=== PATIENT | female | born 1980 | race Caucasian/White ===

== ENCOUNTER 2017-07-04 10:58 | Inpatient (IN) | payer OTHER, SELFPAY ==
[2017-07-04] MEDS ORDERED: DiphenhydrAMINE 50 mg/ml Inj IV STA (11:36)
[2017-07-04] MEDS ORDERED: Sodium Chloride 0.9% 1,000 ML IV STA (11:36)
--- NOTE | 2017-07-04 12:02 | ED PDOC ---
HPI: General Adult Time Seen by Provider: 07/04/17 11:25 Chief Complaint (Nursing): Flu-like Symptoms Chief Complaint (Provider): Body Ache History Per: Patient History/Exam Limitations: no limitations Onset/Duration Of Symptoms: Days (x 3 days) Current Symptoms Are (Timing): Still Present Additional Complaint(s): 36 y/o female presents to the emergency department with a complaint of diffuse body aches, right upper arm pain and chest pain that worsens with deep breaths since Wednesday07/02/17. Associated with redness and itchiness to right armpit and states she hasn't applied any new soap, lotion or deodorant to the area. She also reports back pain, headache (not new) (not worst in her life and is mild), nausea, blurry vision(sometimes) and shortness of breath(sometimes). States she took 2 Aleve pills on Wednesday,06/30/2017, for the relief of symptoms. Denies neck pain, vomiting, diarrhea, cough, congestion, sore throat, runny nose, abdominal pain, urinary and bowel symptoms. Past Medical History Reviewed: Historical Data, Nursing Documentation, Vital Signs Vital Signs: Last Vital Signs Temp 98 F 07/04/17 11:04 Pulse 95 H 07/04/17 11:04 Resp BP 122/70 07/04/17 11:04 Pulse Ox 97 07/04/17 13:50 - Medical History PMH: No Chronic Diseases - Surgical History Surgical History: Cholecystectomy - Family History Family History: States: Unknown Family Hx - Social History Current smoker - smoking cessation education provided: No Alcohol: None Drugs: Denies - Allergies Allergies/Adverse Reactions: Allergies Allergy/AdvReac Type Severity Reaction Status Date / Time No Known Allergies Allergy Verified 07/04/17 11:18 Review of Systems ROS Statement: Except As Marked, All Systems Reviewed And Found Negative (As per HPI otherwise negative) Eyes: Positive for: Vision Change (Blurry vision (sometimes)) ENT: Negative for: Nose Discharge, Nose Congestion, Throat Pain (Sore throat) Cardiovascular: Positive for: Chest Pain (upon deep breaths) Respiratory: Positive for: Shortness of Breath (sometimes). Negative for: Cough Gastrointestinal: Positive for: Nausea. Negative for: Vomiting, Abdominal Pain , Diarrhea Genitourinary Female: Negative for: Dysuria, Hematuria Musculoskeletal: Positive for: Neck Pain, Arm Pain (Right upper arm pain), Back Pain Neurological: Positive for: Headache (not new) Physical Exam - Reviewed Nursing Documentation Reviewed: Yes Vital Signs Reviewed: Yes - Physical Exam Appears: Positive for: Non-toxic, No Acute Distress Head Exam: Positive for: ATRAUMATIC, NORMAL INSPECTION, NORMOCEPHALIC Skin: Positive for: Normal Color, Warm, Dry Cardiovascular/Chest: Positive for: Regular Rate, Rhythm. Negative for: Murmur Respiratory: Positive for: Normal Breath Sounds. Negative for: Accessory Muscle Use, Respiratory Distress Gastrointestinal/Abdominal: Positive for: Normal Exam, Soft. Negative for: Tenderness Extremity: Positive for: Normal ROM, Other (8 cm diameter erythema region noted with tenderness to the right posterior axilla and right posterior arm with mild blanching and induration. No gross fluctuance or discharge. ). Negative for: Pedal Edema Neurologic/Psych: Positive for: Alert, Oriented (x3) - Laboratory Results Result Diagrams: 07/04/17 12:20 07/04/17 12:20 Interpretation Of Abn Labs: 19.6 wbc - ECG O2 Sat by Pulse Oximetry: 97 (RA) Pulse Ox Interpretation: Normal - Radiology X-Ray: Interpreted by Me, Viewed By Me X-Ray Interpretation: No Acute Disease - Progress ED Course And Treament: 1349: Stable. Will need admit for further iv tx. Meets sepsis criteria. Dr. Ross aware and will admit. Medical Decision Making Medical Decision Making: Time: 11:36 Initial Impression: Initial Plan: --EKG --CMP --CPK --Troponin I --CBC w/ Diff --Chest X-ray --Benadryl 25 mg IV --Toradol 15 mg IVP --methylprednisolone 125mg IVP --Sodium Chloride 1L IV --Reevaluation Time: 1220 --Troponin I: <0.0120 Scribe Attestation: Documented by Eleuterio Mercer, acting as a scribe for Andrés Holguin MD. Provider Scribe Attestation: All medical record entries made by the Scribe were at my direction and personally dictated by me. I have reviewed the chart and agree that the record accurately reflects my personal performance of the history, physical exam, medical decision making, and the department course for this patient. I have also personally directed, reviewed, and agree with the discharge instructions and disposition. Disposition - Clinical Impression Clinical Impression: Cellulitis, Sepsis - Patient ED Disposition Is Patient to be Admitted: Yes Counseled Patient/Family Regarding: Studies Performed, Diagnosis - Disposition Disposition Time: 13:50 Condition: STABLE - Pt Status Changed To: Hospital Disposition Of: Inpatient - Admit Certification Admit to Inpatient:: After my assessment, the patient will require hospitalization for at least two midnights. This is because of the severity of symptoms shown, intensity of services needed, and/or the medical risk in this patient being treated as an outpatient. - POA Present On Arrival: None
[2017-07-04] MEDS ORDERED: DiphenhydrAMINE 50 mg/ml Inj ONE (12:11)
[2017-07-04 12:33] LABS: BASO # 0.1 K/uL (0.0-0.2); BASO % 0.6 % (0.0-2.0); EOS # 0.5 K/uL (0.0-0.7); EOS % 2.7 % (0.0-4.0); HEMATOCRIT 43.5 % (34.0-47.0); LYMPH # 3.7 K/uL (1.0-4.3); LYMPH % 18.9 % (20.0-40.0); MEAN CELL VOLUME 85.6 fl (81.0-99.0); MEAN CORPUSCULAR HEMOGLOBIN 28.3 pg (27.0-31.0); MONO # 1.1 K/uL (0.0-0.8); MONO % 5.6 % (0.0-10.0); NEUT # 14.2 K/uL (1.8-7.0); NEUT % 72.2 % (50.0-75.0); RED CELL DISTRIBUTION WIDTH 13.8 % (11.5-14.5); WHITE BLOOD COUNT 19.6 K/uL (4.8-10.8)
[2017-07-04 12:45] LABS: ALB/GLOB RATIO 1.2 (1.0-2.1); ALKALINE PHOSPHATASE 122 U/L (38-126); ALT/SGPT 29 U/L (9-52); AST/SGOT 26 U/L (14-36); BILIRUBIN,TOTAL 0.5 mg/dl (0.2-1.3); BLOOD UREA NITROGEN 15 mg/dl (7-17); CALCIUM 9.4 mg/dL (8.4-10.2); CARBON DIOXIDE 25 mmol/L (22-30); CHLORIDE 104 mmol/L (98-107); GFR AFRICAN-AMERICAN > 60; GLUCOSE,RANDOM 94 mg/dL (65-105); POTASSIUM 4.2 MMOL/L (3.6-5.0); SODIUM 142 mmol/l (132-148); TOTAL PROTEIN 8.1 G/DL (6.3-8.2)
[2017-07-04] MEDS ORDERED: Clindamycin 600 MG in Sodium Chloride 0.9% 100 ML IVPB STA (13:40)
[2017-07-04 14:08] LABS: VENOUS BLOOD GAS BASE EXCESS -0.6 mmol/L (0.0-2.0); VENOUS BLOOD GAS PCO2 46 mmHg (40-60); VENOUS BLOOD PH 7.35 (7.32-7.43)
--- NOTE | 2017-07-04 15:41 | RAD ---
HISTORY: pain COMPARISON: No prior. TECHNIQUE: Chest PA and lateral FINDINGS: LUNGS: No active pulmonary disease. PLEURA: No significant pleural effusion identified. No pneumothorax apparent. CARDIOVASCULAR: Normal. OSSEOUS STRUCTURES: No significant abnormalities. VISUALIZED UPPER ABDOMEN: Normal. OTHER FINDINGS: None. IMPRESSION: No active disease.
--- NOTE | 2017-07-04 16:44 | CP.PCM.HP ---
History of Present Illness - History of Present Illness History of Present Illness: CC: underarm bump HPI: 36 year old female no PMH presents with a 2 day history of what started as a small bump under her R axilla which gradually worsened with moderate pain, no drainage noted. Patient shaved a few days prior to onset, and has never had this before. On exam was noted a 7 cm erythematous tender indurated area, without drainage, +blanching. Pt also complaining of 2 day hx of dyspnea and moderate to severe sharp pain on inspiration. In ER, WBC 19.6K, 98.7, HR 88, BP 100/48, RR 18, 96% RA. Dimer pending. Will obtain CTA if warranted. HD stable, resting comfortably. ROS: per HPI all other systems reviewed and negative PMSH: appendectomy FH denies SH denies tobacco, etoh, ivdu NKDA meds as below vitals stable and reviewed as above GEN: WDWN, ALERT, COOPERATIVE HEENT: NCAT, PERRL, EOMI HEART: +S1+S2, RRR NO MRG LUNG: dyspnea on inspiration, mild distress on inspiration, CTAB, NO WRR ABD: SOFT BSX4 NT ND NO HSM NO MASS EXT: WARM, WELL PERFUSED NEURO: AA0X3, STRENGTH AND SENSATION EQUAL AND BILATERAL SKIN: WARM DRY PSYCH: NORMAL MOOD NORMAL AFFECT 07/04/17 07/04/17 07/04/17 14:03 12:20 12:20 WBC 19.6 H RBC 5.08 Hgb 14.4 Hct 43.5 MCV 85.6 MCH 28.3 MCHC 33.0 RDW 13.8 Plt Count 199 MPV 9.0 Neut % (Auto) 72.2 Lymph % (Auto) 18.9 L Pershing % (Auto) 5.6 Eos % (Auto) 2.7 Baso % (Auto) 0.6 Neut # 14.2 H Lymph # 3.7 Pershing # 1.1 H Eos # 0.5 Baso # 0.1 pO2 22 L VBG pH 7.35 VBG pCO2 46 VBG HCO3 22.7 VBG Total CO2 26.8 VBG O2 Sat (Calc) 45.9 VBG Base Excess -0.6 L VBG Potassium 4.1 Glucose 96 Lactate 0.8 FiO2 21.0 Sodium 137.0 142 Potassium 4.2 Chloride 108.0 H 104 Carbon Dioxide 25 Anion Gap 17 BUN 15 Creatinine 0.7 Est GFR ( Amer) > 60 Est GFR (Non-Af Amer) > 60 Random Glucose 94 Calcium 9.4 Total Bilirubin 0.5 AST 26 ALT 29 Alkaline Phosphatase 122 Total Creatine Kinase 100 Troponin I < 0.0120 Total Protein 8.1 Albumin 4.4 Globulin 3.7 Albumin/Globulin Ratio 1.2 Venous Blood Potassium 4.1 36 year old female no PMH presents with a 2 day history of what started as a small bump under her R axilla which gradually worsened with moderate pain, no drainage noted. Patient shaved a few days prior to onset, and has never had this before. On exam was noted a 7 cm erythematous tender indurated area, without drainage, +blanching. Pt also complaining of 2 day hx of dyspnea and moderate to severe sharp pain on inspiration. In ER, WBC 19.6K, 98.7, HR 88, BP 100/48, RR 18, 96% RA. Dimer pending. Will obtain CTA if warranted. HD stable, resting comfortably. Folliculitis vs. Hidradenitis Supprativa afebrile HD stable WBC 19k Continue Clindamycin IVPB monitor Surgery Consulted: Dr. More Chest pain on Inspiration with Dyspnea Dimer Pending will obtain CTA if warranted. Present on Admission - Present on Admission Any Indicators Present on Admission: No Past Patient History - Past Social History Alcohol: None Drugs: Denies - PSYCHIATRIC Hx Substance Use: No - SURGICAL HISTORY Hx Cholecystectomy: Yes - ANESTHESIA Hx Anesthesia: Yes Hx Anesthesia Reactions: No Meds Allergies/Adverse Reactions: Allergies Allergy/AdvReac Type Severity Reaction Status Date / Time No Known Allergies Allergy Verified 07/04/17 11:18 Results - Vital Signs Recent Vital Signs: Last Vital Signs Temp 98.7 F 07/04/17 14:30 Pulse 89 07/04/17 15:36 Resp 18 07/04/17 15:36 BP 101/63 07/04/17 15:36 Pulse Ox 96 07/04/17 15:36 - Labs Result Diagrams: 07/04/17 12:20 07/04/17 12:20 Labs: Laboratory Results - last 24 hr 07/04/17 07/04/17 07/04/17 12:20 12:20 14:03 WBC 19.6 H RBC 5.08 Hgb 14.4 Hct 43.5 MCV 85.6 MCH 28.3 MCHC 33.0 RDW 13.8 Plt Count 199 MPV 9.0 Neut % (Auto) 72.2 Lymph % (Auto) 18.9 L Pershing % (Auto) 5.6 Eos % (Auto) 2.7 Baso % (Auto) 0.6 Neut # 14.2 H Lymph # 3.7 Pershing # 1.1 H Eos # 0.5 Baso # 0.1 pO2 22 L VBG pH 7.35 VBG pCO2 46 VBG HCO3 22.7 VBG Total CO2 26.8 VBG O2 Sat (Calc) 45.9 VBG Base Excess -0.6 L VBG Potassium 4.1 Glucose 96 Lactate 0.8 FiO2 21.0 Sodium 142 137.0 Potassium 4.2 Chloride 104 108.0 H Carbon Dioxide 25 Anion Gap 17 BUN 15 Creatinine 0.7 Est GFR ( Amer) > 60 Est GFR (Non-Af Amer) > 60 Random Glucose 94 Calcium 9.4 Total Bilirubin 0.5 AST 26 ALT 29 Alkaline Phosphatase 122 Total Creatine Kinase 100 Troponin I < 0.0120 Total Protein 8.1 Albumin 4.4 Globulin 3.7 Albumin/Globulin Ratio 1.2 Venous Blood Potassium 4.1
[2017-07-04] MEDS ORDERED: Iodixanol 320 MG/ML 100 ML BOTTLE IV ONE (18:20)
[2017-07-04] MEDS ORDERED: Sodium Chloride 0.9% 50 ML IV ONE (18:20)
--- NOTE | 2017-07-04 18:20 | CP.PCM.CON ---
History of Present Illness - History of Present Illness History of Present Illness: General Surgery Dr. More 36 y/o F w/ no PMHx presents to the ED c/o R axillary lesion pain. Pt states lesion began Wednesday as small pimple and has progressively increased in size. Pt reports worsening pain and warmth from the site. Pt states lesion is itchy. Pt has not noticed any drainage from the site. Pt denies having had this in the past. Per EMR, pt recently shaved a few days prior to when the lesion was first noticed. Pt admits to numbness/tingling in R arm and myalgias. Of note, pt also c/o of pleuritic chest pain, SOB, and MITCHELL. PMHx: denies Meds: reviewed in chart NKDA PSHx: appy SHx: denies tobacco, EtOH, drug use FHx: denies Review of Systems - Review of Systems All systems: reviewed and no additional remarkable complaints except (see HPI) Past Patient History - Past Social History Alcohol: None Drugs: Denies - PSYCHIATRIC Hx Substance Use: No - SURGICAL HISTORY Hx Cholecystectomy: Yes - ANESTHESIA Hx Anesthesia: Yes Hx Anesthesia Reactions: No Meds Allergies/Adverse Reactions: Allergies Allergy/AdvReac Type Severity Reaction Status Date / Time No Known Allergies Allergy Verified 07/04/17 11:18 - Medications Medications: Current Medications Acetaminophen (Tylenol 325mg Tab) 650 mg PO Q4 PRN PRN Reason: Pain, Moderate (4-7)% headache Clindamycin Phosphate 600 mg/ (Sodium Chloride) 104 mls @ 104 mls/hr IVPB Q8 FLORENCIO PRN Reason: Protocol Physical Exam - Constitutional Appears: Non-toxic, No Acute Distress - Head Exam Head Exam: NORMAL INSPECTION - Eye Exam Eye Exam: Normal appearance - ENT Exam ENT Exam: Mucous Membranes Moist - Respiratory Exam Respiratory Exam: Chest Wall Tenderness, NORMAL BREATHING PATTERN. absent: Accessory Muscle Use, Respiratory Distress - Cardiovascular Exam Cardiovascular Exam: Tachycardia, REGULAR RHYTHM - GI/Abdominal Exam GI & Abdominal Exam: Soft. absent: Distended, Tenderness - Extremities Exam Additional comments: 4cm x4cm area of induration in R axilla. erythematous area slightly larger at ~5 -6cm. no fluctance. no drainage noted. surrounding skin excoriated - Neurological Exam Neurological exam: Alert, Oriented x3 - Psychiatric Exam Psychiatric exam: Normal Affect, Normal Mood - Skin Skin Exam: Dry, Intact, Warm Results - Vital Signs Recent Vital Signs: Last Vital Signs Temp 98.7 F 07/04/17 14:30 Pulse 89 07/04/17 15:36 Resp 18 07/04/17 15:36 BP 101/63 07/04/17 15:36 Pulse Ox 96 07/04/17 15:36 - Labs Result Diagrams: 07/04/17 12:20 07/04/17 12:20 Labs: Laboratory Results - last 24 hr 07/04/17 07/04/17 07/04/17 12:20 12:20 14:03 WBC 19.6 H RBC 5.08 Hgb 14.4 Hct 43.5 MCV 85.6 MCH 28.3 MCHC 33.0 RDW 13.8 Plt Count 199 MPV 9.0 Neut % (Auto) 72.2 Lymph % (Auto) 18.9 L Blount % (Auto) 5.6 Eos % (Auto) 2.7 Baso % (Auto) 0.6 Neut # 14.2 H Lymph # 3.7 Blount # 1.1 H Eos # 0.5 Baso # 0.1 D-Dimer, Quantitative pO2 22 L VBG pH 7.35 VBG pCO2 46 VBG HCO3 22.7 VBG Total CO2 26.8 VBG O2 Sat (Calc) 45.9 VBG Base Excess -0.6 L VBG Potassium 4.1 Glucose 96 Lactate 0.8 FiO2 21.0 Sodium 142 137.0 Potassium 4.2 Chloride 104 108.0 H Carbon Dioxide 25 Anion Gap 17 BUN 15 Creatinine 0.7 Est GFR ( Amer) > 60 Est GFR (Non-Af Amer) > 60 Random Glucose 94 Calcium 9.4 Total Bilirubin 0.5 AST 26 ALT 29 Alkaline Phosphatase 122 Total Creatine Kinase 100 Troponin I < 0.0120 Total Protein 8.1 Albumin 4.4 Globulin 3.7 Albumin/Globulin Ratio 1.2 Venous Blood Potassium 4.1 07/04/17 17:05 WBC RBC Hgb Hct MCV MCH MCHC RDW Plt Count MPV Neut % (Auto) Lymph % (Auto) Blount % (Auto) Eos % (Auto) Baso % (Auto) Neut # Lymph # Blount # Eos # Baso # D-Dimer, Quantitative 278 H pO2 VBG pH VBG pCO2 VBG HCO3 VBG Total CO2 VBG O2 Sat (Calc) VBG Base Excess VBG Potassium Glucose Lactate FiO2 Sodium Potassium Chloride Carbon Dioxide Anion Gap BUN Creatinine Est GFR ( Amer) Est GFR (Non-Af Amer) Random Glucose Calcium Total Bilirubin AST ALT Alkaline Phosphatase Total Creatine Kinase Troponin I Total Protein Albumin Globulin Albumin/Globulin Ratio Venous Blood Potassium - Imaging and Cardiology CT scan - chest Status: Image reviewed by me, Report reviewed by me Assessment & Plan - Assessment and Plan (Free Text) Assessment: 36 y/o F w/ hidradenitis suppurativa aslo c/o pleuritic CP - warm compressed TID - US and doppler of R arm - IV Abx - pain management - CTA negative for PE - medical management as per PMD - GI/DVT PPx Pt discussed w/ Dr. Derik Leonardo DO PGY2
--- NOTE | 2017-07-04 19:44 | CT ---
EXAM: CT Angiography Chest With Intravenous Contrast EXAM DATE/TIME: 07/04/2017 6:15 PM CLINICAL HISTORY: 36 years old, female; Signs and symptoms; Other: Pe; Additional info: R/O pe TECHNIQUE: Axial computed tomographic angiography images of the chest with intravenous contrast using pulmonary embolism protocol. All CT scans at this facility use one or more dose reduction techniques, viz.: automated exposure control; ma/kV adjustment per patient size (including targeted exams where dose is matched to indication; i.e. head); or iterative reconstruction technique. MIP reconstructed images were created and reviewed. Coronal and sagittal reformatted images were created and reviewed. CONTRAST: 95 mL of VISIPAQUE 320 administered intravenously. COMPARISON: There are no prior studies for comparison. FINDINGS: Heart, aorta and Pulmonary arteries: The heart is mildly enlarged. There is no pericardial effusion.There is no aneurysm or dissection. There are no central pulmonary emboli. Allowing for bolus timing and motion, there are no large peripheral emboli. There are no effusions Lungs and pleural spaces: Trachea and main bronchi are patent.There is no pneumothorax. There is no lobar or segmental consolidation. There are asymmetric groundglass opacities bilaterally. There are no effusions. Mediastinum: There are no pathologically enlarged mediastinal or hilar nodes. Esophagus is unremarkable. Thyroid: Thyroid is only partially imaged. Bones/joints: There are no acute osseous abnormalities. Soft tissues: unremarkable Lymph nodes: See above. Upper abdomen: There are no acute abnormalities in the visualized portion of the abdomen. Gallbladder is absent IMPRESSION: Slightly limited by bolus timing and patient motion, no aneurysm, dissection or pulmonary embolus, minimal asymmetric airspace disease atelectasis versus pneumonitis, no focal consolidation
[2017-07-04] MEDS ORDERED: Heparin 25,000units in D5W 25,000 UNITS/250 ML BAG IV SCH ×2 (20:45→23:45)
[2017-07-04 21:55] LABS: PARTIAL THROMBOPLASTIN TIME 34.4 Seconds (25.6-37.1)
[2017-07-05] MEDS: Clindamycin 600 MG in Sodium Chloride 0.9% 100 ML IVPB SCH ×2 (00:34→09:33)
[2017-07-05 01:18] VITALS: BMI 33.3
--- NOTE | 2017-07-05 07:36 | CP.PCM.PN ---
Subjective - Date & Time of Evaluation Date of Evaluation: 07/05/17 Time of Evaluation: 06:40 - Subjective Subjective: Patient seen and examined this morning. Reports right axilla pain has improved since admission. Patient still complaining of intermittent chest pain and shortness of breath. She also reports calf tenderness. No drainage noted from right axilla, erythema is improving. Objective - Vital Signs/Intake and Output Vital Signs (last 24 hours): Temp Pulse Resp BP Pulse Ox 97.7 F 99 H 20 102/61 96 07/05/17 00:19 07/05/17 02:41 07/05/17 00:19 07/05/17 00:19 07/05/17 00:19 - Medications Medications: Current Medications Acetaminophen (Tylenol 325mg Tab) 650 mg PO Q4 PRN PRN Reason: Pain, Moderate (4-7)% headache Last Admin: 07/04/17 19:03 Dose: 650 mg Clindamycin Phosphate 600 mg/ (Sodium Chloride) 104 mls @ 104 mls/hr IVPB Q8 FLORENCIO PRN Reason: Protocol Last Admin: 07/05/17 00:34 Dose: 104 mls/hr Heparin Sodium/Dextrose (Heparin 25,000 Units/250ml In D5w) 25,000 units in 250 mls @ 15 mls/hr IV .[id number] FLORENCIO; Per Protocol PRN Reason: Protocol Last Admin: 07/05/17 00:52 Dose: 15 mls/hr Influenza Virus Vaccine (Afluria (Pf)(18yr & Older)) 0.5 ml IM .ONCE ONE Stop: 07/05/17 09:01 - Labs Labs: 07/04/17 12:20 07/04/17 12:20 PT 14.4 Seconds (9.8-13.1) H 07/04/17 21:30 INR 1.3 (0.9-1.2) H 07/04/17 21:30 APTT 34.4 Seconds (25.6-37.1) 07/04/17 21:30 - Constitutional Appears: No Acute Distress - Head Exam Head Exam: NORMOCEPHALIC - Eye Exam Eye Exam: Normal appearance - ENT Exam ENT Exam: Mucous Membranes Moist - Respiratory Exam Respiratory Exam: NORMAL BREATHING PATTERN. absent: Chest Wall Tenderness - Cardiovascular Exam Cardiovascular Exam: +S1, +S2 - GI/Abdominal Exam GI & Abdominal Exam: Soft - Extremities Exam Extremities Exam: Calf Tenderness, Tenderness Additional comments: Right upper extremity collection, no erythema noted, no drainage appreciated B/l calf tenderness - Neurological Exam Neurological Exam: Alert, Awake, Oriented x3 - Psychiatric Exam Psychiatric exam: Normal Mood - Skin Skin Exam: Dry, Intact Assessment and Plan - Assessment and Plan (Free Text) Assessment: 36F w/ hidradenitis and intermittent chest pain/SOB -F/u axilla U/S -f/u b/l venous duplex -C/w abx -Heparin drip -C/w analgesics -Warm compresses -D/w Dr. Derik Wilson PGY2
[2017-07-05 07:51] LABS: BASO % 0.1 % (0.0-2.0); HEMATOCRIT 38.4 % (34.0-47.0); LYMPH # 2.5 K/uL (1.0-4.3); LYMPH % 8.7 % (20.0-40.0); MEAN CELL VOLUME 85.2 fl (81.0-99.0); MEAN CORPUSCULAR HEMOGLOBIN 28.2 pg (27.0-31.0); MEAN CORPUSCULAR HGB CONC 33.1 g/dL (33.0-37.0); MEAN PLATELET VOLUME 9.3 fl (7.2-11.7); MONO # 1.5 K/uL (0.0-0.8); MONO % 5.3 % (0.0-10.0); NEUT # 24.8 K/uL (1.8-7.0); NEUT % 85.9 % (50.0-75.0); PLATELET COUNT 184 K/uL (130-400); RED CELL DISTRIBUTION WIDTH 13.5 % (11.5-14.5); WHITE BLOOD COUNT 28.8 K/uL (4.8-10.8)
[2017-07-05 07:57] LABS: BLOOD UREA NITROGEN 20 mg/dl (7-17); CARBON DIOXIDE 21 mmol/L (22-30); CHLORIDE 110 mmol/L (98-107); GFR AFRICAN-AMERICAN > 60; GLUCOSE,RANDOM 146 mg/dL (65-105); POTASSIUM 4.3 MMOL/L (3.6-5.0); SODIUM 141 mmol/l (132-148)
[2017-07-05 08:00] VITALS: RESP 18
--- NOTE | 2017-07-05 08:41 | CARD ---
APPROVED REPORT EKG Measurement Heart [id number] [id number] <Conclusion> Normal sinus rhythm Normal ECG
[2017-07-05] MEDS ORDERED: Enoxaparin 40 mg Syringe SC SCH (09:00)
[2017-07-05 09:23] LABS: EOSINOPHIL 1 % (0-7); NEUTROPHIL 88 % (42-75); TOTAL CELLS COUNTED 100
[2017-07-05 09:25] LABS: LARGE PLATELETS PRESENT
--- NOTE | 2017-07-05 12:01 | US ---
PROCEDURE: Bilateral lower extremity venous duplex Doppler. HISTORY: r/o DVT, right calf pain COMPARISON: None available. TECHNIQUE: Bilateral common femoral, superficial femoral, popliteal and posterior tibial veins were evaluated. Flow was assessed with color Doppler, compressibility, assessment of phasic flow and augmentation response. FINDINGS: COMMON FEMORAL VEIN: Right CFV: Unremarkable. Left CFV: Unremarkable. SUPERFICIAL FEMORAL VEIN: Right SFV: Unremarkable. Left SFV: Unremarkable. POPLITEAL VEIN: Right Popliteal: Unremarkable. Left Popliteal: Unremarkable. POSTERIOR TIBIAL VEIN: Right PTV: Unremarkable. Left PTV: Unremarkable. OTHER FINDINGS: None. IMPRESSION: No evidence of deep venous thrombosis.
--- NOTE | 2017-07-05 12:03 | US ---
PROCEDURE: Soft tissue ultrasound, limited HISTORY: R axillary lesion, hydradenitis vs lymphadenopathy COMPARISON: None TECHNIQUE: Standard protocol for this study/examination. FINDINGS: Diffuse edema in the right axilla. Subcutaneous edema common no drainable collection. Morphologically, unremarkable lymph node measuring less than 1 cm. IMPRESSION: Diffuse cutaneous and subcutaneous edema right axilla correspond to findings on physical examination. No drainable collection or other pathologic process.
--- NOTE | 2017-07-05 12:07 | US ---
PROCEDURE: HISTORY: axillary pain, pleuritic chest pain COMPARISON: None available. TECHNIQUE: Grayscale and duplex Doppler evaluation of the right upper extremity was performed. Report prepared by electroneurodiagnostic technologist. FINDINGS: RIGHT UPPER EXTREMITY: * Right common carotid: Peak Systolic Velocity - 91.9: : * Right SCA: Peak Systolic Velocity - 128.4: : Triphasic.: * Axillary: Peak Systolic Velocity - 76.3: Doppler Waveform: Biphasic: * Brachial o Proximal Segment: Peak Systolic Velocity - 103.4: Doppler Waveform: Triphasic.: o Distal Segment: Peak Systolic Velocity - 110.3: Doppler Waveform: Triphasic.: * Radial o Proximal Segment: Peak Systolic Velocity - 97.9: Doppler Waveform: Biphasic: * Ulnar: Peak Systolic Velocity - 66.9: Doppler Waveform: Biphasic: OTHER FINDINGS: None. IMPRESSION: There is no evidence of hemodynamically significant arterial insufficiency in right upper extremity.
[2017-07-05] MEDS ORDERED: Naproxen 500 MG TAB PO STA (15:13)
--- NOTE | 2017-07-05 15:15 | CP.PCM.PN ---
Subjective - Date & Time of Evaluation Date of Evaluation: 07/05/17 Time of Evaluation: 14:00 - Subjective Subjective: No fever at present + leukocytosis complains of tenderness /pain axillary area CP improved sl headache relieved by Naproxen - no nuchal rigidity no SOB no abd pain no dysuria Objective - Vital Signs/Intake and Output Vital Signs (last 24 hours): Temp Pulse Resp BP Pulse Ox 97.5 F L 69 18 95/59 L 98 07/05/17 07:59 07/05/17 07:59 07/05/17 07:59 07/05/17 07:59 07/05/17 07:59 - Medications Medications: Current Medications Acetaminophen (Tylenol 325mg Tab) 650 mg PO Q4 PRN PRN Reason: Pain, Moderate (4-7)% headache Last Admin: 07/05/17 10:04 Dose: 650 mg Vancomycin HCl 1 gm/ Sodium (Chloride) 250 mls @ 166.667 mls/hr IVPB Q12 FLORENCIO PRN Reason: Protocol Naproxen (Naproxen) 500 mg PO STAT STA Stop: 07/05/17 15:14 - Labs Labs: 07/05/17 07:30 07/05/17 07:30 PT 14.4 Seconds (9.8-13.1) H 07/04/17 21:30 INR 1.3 (0.9-1.2) H 07/04/17 21:30 APTT 119.7 Seconds (25.6-37.1) H* D 07/05/17 07:30 - Constitutional Appears: No Acute Distress - Head Exam Head Exam: NORMAL INSPECTION, NORMOCEPHALIC - Eye Exam Eye Exam: EOMI, Normal appearance, PERRL Pupil Exam: NORMAL ACCOMODATION - ENT Exam ENT Exam: Mucous Membranes Moist, Normal External Ear Exam - Neck Exam Neck Exam: Full ROM. absent: Meningismus - Respiratory Exam Respiratory Exam: NORMAL BREATHING PATTERN. absent: Respiratory Distress - Cardiovascular Exam Cardiovascular Exam: REGULAR RHYTHM, +S1, +S2 - Extremities Exam Extremities Exam: Full ROM, Normal Capillary Refill. absent: Calf Tenderness, Pedal Edema Additional comments: Right axillary area erythematous, tender, noted small superficial furuncle, palpable LN - Back Exam Back Exam: Full ROM. absent: CVA tenderness (L), CVA tenderness (R), paraspinal tenderness, vertebral tenderness - Neurological Exam Neurological Exam: Alert, Awake, CN II-XII Intact, Oriented x3 Neuro motor strength exam: Left Upper Extremity: 5, Right Upper Extremity: 5, Left Lower Extremity: 5, Right Lower Extremity: 5 - Psychiatric Exam Psychiatric exam: Normal Affect, Normal Mood - Skin Skin Exam: Dry, Normal Color, Warm Assessment and Plan (1) Cellulitis of axillary fold Status: Acute (2) Chest pain Status: Acute - Assessment and Plan (Free Text) Assessment: 36 y/o lady with hx of Migraine, came in bec of 3 days hx of fever and right axillary pain , erythema and tenderness. (1) Cellulitis of axillary fold, right Status: Acute erythematous , tender patch on the right axillary area, noted small area of pimple start IV Vanco, d/c Clinda, add IV Cefepime Blood c/s Surgery consulted US of axilla: no abscess Doppler US of UE Negative for DVT UE Arterial Doppler : good flow leukocytosis 19k- worse due to steroids given in ED (2) Chest pain Status: Acute DDimer elevated CTA of Chest : no PE , no dissection, noted minimal airspace dis (atelectasis vs pneumonitis) Pt on IV Vanco and Cefepime Doppler US of UE and LE : negative Incentive spirometer initially started on Heparin drip - d/c after VTE ruled out DVT proph Lovenox start in am
--- NOTE | 2017-07-05 16:53 | US ---
Right upper extremity ultrasound Indication: Rule out DVT Technique: Duplex ultrasound evaluation of the right upper extremity Comparison: None available Findings: There is normal flow and compressibility of the right brachial, basilic, axillary, and cephalic veins. Radial and ulnar veins appear unremarkable. Blood flow is demonstrated in the right subclavian and internal jugular vein. Impression: No evidence of deep venous thrombosis in the right upper extremity.
[2017-07-05] MEDS: Influenza Vaccine 18yr & older 0.5 ML/45 MCG SYR IM ONE (18:55)
[2017-07-05] MEDS ORDERED: Cefepime IV 1 gm in Dextrose 1 GM/50 ML BAG IVPB SCH (19:30)
[2017-07-06] MEDS: Cefepime 1 GM in Sodium Chloride 0.9% 100 ML IVPB SCH ×2 (05:00→12:30)
[2017-07-06] MEDS ORDERED: Cefepime 1 GM in Sodium Chloride 0.9% 100 ML IVPB ONE (05:00)
[2017-07-06 06:43] LABS: BASO # 0.2 K/uL (0.0-0.2); BASO % 0.8 % (0.0-2.0); EOS # 0.6 K/uL (0.0-0.7); EOS % 3.1 % (0.0-4.0); HEMATOCRIT 37.1 % (34.0-47.0); LYMPH # 5.3 K/uL (1.0-4.3); LYMPH % 28.5 % (20.0-40.0); MEAN CELL VOLUME 84.6 fl (81.0-99.0); MEAN CORPUSCULAR HEMOGLOBIN 28.3 pg (27.0-31.0); MEAN CORPUSCULAR HGB CONC 33.5 g/dL (33.0-37.0); MONO # 0.8 K/uL (0.0-0.8); MONO % 4.5 % (0.0-10.0); NEUT # 11.8 K/uL (1.8-7.0); NEUT % 63.1 % (50.0-75.0); RED CELL DISTRIBUTION WIDTH 13.9 % (11.5-14.5); WHITE BLOOD COUNT 18.7 K/uL (4.8-10.8)
[2017-07-06 06:49] LABS: BLOOD UREA NITROGEN 18 mg/dl (7-17); CARBON DIOXIDE 21 mmol/L (22-30); CHLORIDE 112 mmol/L (98-107); GFR AFRICAN-AMERICAN > 60; GLUCOSE,RANDOM 96 mg/dL (65-105); POTASSIUM 4.3 MMOL/L (3.6-5.0); SODIUM 142 mmol/l (132-148)
[2017-07-06 07:27] VITALS: BP 97/59; PULSE 71; TEMP 97.9; O2SAT 99
--- NOTE | 2017-07-06 07:39 | CP.PCM.PN ---
Subjective - Date & Time of Evaluation Date of Evaluation: 07/06/17 Time of Evaluation: 07:10 - Subjective Subjective: Patient seen and examined this morning. Reports some pruritus around axilla region. States her pain has markedly decreases since admission. No erythema/ discharge noted from right axilla. Objective - Vital Signs/Intake and Output Vital Signs (last 24 hours): Temp Pulse Resp BP Pulse Ox 97.9 F 71 18 97/59 L 99 07/06/17 07:26 07/06/17 07:26 07/06/17 07:26 07/06/17 07:26 07/06/17 07:26 - Medications Medications: Current Medications Acetaminophen (Tylenol 325mg Tab) 650 mg PO Q4 PRN PRN Reason: Pain, Moderate (4-7)% headache Last Admin: 07/05/17 20:47 Dose: 650 mg Enoxaparin Sodium (Lovenox) 40 mg SC DAILY FLORENCIO PRN Reason: Protocol Vancomycin HCl 1 gm/ Sodium (Chloride) 250 mls @ 166.667 mls/hr IVPB Q12 FLORENCIO PRN Reason: Protocol Last Admin: 07/05/17 21:52 Dose: 166.667 mls/hr Cefepime HCl 1 gm/ Sodium (Chloride) 100 mls @ 100 mls/hr IVPB Q8@0500,1300, 2100 FLORENCIO PRN Reason: Protocol - Labs Labs: 07/06/17 06:00 07/06/17 06:00 PT 14.4 Seconds (9.8-13.1) H 07/04/17 21:30 INR 1.3 (0.9-1.2) H 07/04/17 21:30 APTT 34.4 Seconds (25.6-37.1) 07/04/17 21:30 - Constitutional Appears: No Acute Distress - Head Exam Head Exam: NORMOCEPHALIC - Eye Exam Eye Exam: Normal appearance - ENT Exam ENT Exam: Mucous Membranes Moist - Respiratory Exam Respiratory Exam: NORMAL BREATHING PATTERN - Cardiovascular Exam Cardiovascular Exam: +S1, +S2 - GI/Abdominal Exam GI & Abdominal Exam: Soft - Neurological Exam Neurological Exam: Alert, Awake, Oriented x3 - Psychiatric Exam Psychiatric exam: Normal Mood - Skin Skin Exam: Dry, Intact Assessment and Plan - Assessment and Plan (Free Text) Assessment: 36F w/ hidradenitis suppuritiva -axilla U/S: No drainable collection -b/l venous duplex; No evidence of DVTs -C/w abx -C/w analgesics -Warm compresses -D/w Dr. Derik Wilson PGY2
[2017-07-06] MEDS ORDERED: Enoxaparin 40 mg Syringe SC SCH (09:00)
[2017-07-06] MEDS ORDERED: Povidone Iodine Topical 10% Sol ONE (11:16)
--- NOTE | 2017-07-06 11:23 | CP.PCM.DIS ---
Provider - Provider Date of Admission: 07/04/17 13:50 Attending physician: Maryjo Ross DO Consults: Surgery : Dr More Time Spent in preparation of Discharge (in minutes): 35 Diagnosis - Discharge Diagnosis (1) Cellulitis of axillary fold Status: Acute (2) Chest pain Status: Acute Hospital Course - Lab Results Lab Results: Micro Results 07/04/17 13:45 Blood-Venous Blood Culture - Preliminary NO GROWTH AFTER 24 HOURS 07/04/17 14:00 Blood-Venous Blood Culture - Preliminary NO GROWTH AFTER 24 HOURS Most Recent Lab Values WBC 18.7 K/uL (4.8-10.8) H 07/06/17 06:00 RBC 4.39 Mil/uL (3.80-5.20) 07/06/17 06:00 Hgb 12.4 g/dL (12.0-16.0) 07/06/17 06:00 Hct 37.1 % (34.0-47.0) 07/06/17 06:00 MCV 84.6 fl (81.0-99.0) 07/06/17 06:00 MCH 28.3 pg (27.0-31.0) 07/06/17 06:00 MCHC 33.5 g/dL (33.0-37.0) 07/06/17 06:00 RDW 13.9 % (11.5-14.5) 07/06/17 06:00 Plt Count 193 K/uL (130-400) 07/06/17 06:00 MPV 9.0 fl (7.2-11.7) 07/06/17 06:00 Neut % (Auto) 63.1 % (50.0-75.0) 07/06/17 06:00 Lymph % (Auto) 28.5 % (20.0-40.0) 07/06/17 06:00 [place] % (Auto) 4.5 % (0.0-10.0) 07/06/17 06:00 Eos % (Auto) 3.1 % (0.0-4.0) 07/06/17 06:00 Baso % (Auto) 0.8 % (0.0-2.0) 07/06/17 06:00 Neut # 11.8 K/uL (1.8-7.0) H 07/06/17 06:00 Lymph # 5.3 K/uL (1.0-4.3) H 07/06/17 06:00 [place] # 0.8 K/uL (0.0-0.8) 07/06/17 06:00 Eos # 0.6 K/uL (0.0-0.7) 07/06/17 06:00 Baso # 0.2 K/uL (0.0-0.2) 07/06/17 06:00 Neutrophils % (Manual) 88 % (42-75) H 07/05/17 07:30 Band Neutrophils % 3 % (0-2) H 07/05/17 07:30 Lymphocytes % (Manual) 5 % (20-50) L 07/05/17 07:30 Monocytes % (Manual) 3 % (0-10) 07/05/17 07:30 Eosinophils % (Manual) 1 % (0-7) 07/05/17 07:30 Platelet Estimate Normal (NORMAL) 07/05/17 07:30 Large Platelets Present 07/05/17 07:30 RBC Morphology Normal (NORMAL) 07/05/17 07:30 PT 14.4 Seconds (9.8-13.1) H 07/04/17 21:30 INR 1.3 (0.9-1.2) H 07/04/17 21:30 APTT 34.4 Seconds (25.6-37.1) 07/04/17 21:30 D-Dimer, Quantitative 278 ng/mlDDU (0-230) H 07/04/17 17:05 pO2 22 mm/Hg (30-55) L 07/04/17 14:03 VBG pH 7.35 (7.32-7.43) 07/04/17 14:03 VBG pCO2 46 mmHg (40-60) 07/04/17 14:03 VBG HCO3 22.7 mmol/L 07/04/17 14:03 VBG Total CO2 26.8 mmol/L (22-28) 07/04/17 14:03 VBG O2 Sat (Calc) 45.9 % (40-65) 07/04/17 14:03 VBG Base Excess -0.6 mmol/L (0.0-2.0) L 07/04/17 14:03 VBG Potassium 4.1 mmol/L (3.6-5.2) 07/04/17 14:03 Sodium 137.0 mmol/L (132-148) 07/04/17 14:03 Chloride 108.0 mmol/L (98-107) H 07/04/17 14:03 Glucose 96 mg/dL (65-105) 07/04/17 14:03 Lactate 0.8 mmol/L (0.7-2.1) 07/04/17 14:03 FiO2 21.0 % 07/04/17 14:03 Sodium 142 mmol/l (132-148) 07/06/17 06:00 Potassium 4.3 MMOL/L (3.6-5.0) 07/06/17 06:00 Chloride 112 mmol/L (98-107) H 07/06/17 06:00 Carbon Dioxide 21 mmol/L (22-30) L 07/06/17 06:00 Anion Gap 13 (10-20) 07/06/17 06:00 BUN 18 mg/dl (7-17) H 07/06/17 06:00 Creatinine 0.7 mg/dL (0.7-1.2) 07/06/17 06:00 Est GFR ( Amer) > 60 07/06/17 06:00 Est GFR (Non-Af Amer) > 60 07/06/17 06:00 Random Glucose 96 mg/dL (65-105) 07/06/17 06:00 Calcium 8.0 mg/dL (8.4-10.2) L 07/06/17 06:00 Total Bilirubin 0.5 mg/dl (0.2-1.3) 07/04/17 12:20 AST 26 U/L (14-36) 07/04/17 12:20 ALT 29 U/L (9-52) 07/04/17 12:20 Alkaline Phosphatase 122 U/L (38-126) 07/04/17 12:20 Total Creatine Kinase 100 U/L (30-135) 07/04/17 12:20 Troponin I < 0.0120 ng/mL (0.00-0.120) 07/04/17 12:20 Total Protein 8.1 G/DL (6.3-8.2) 07/04/17 12:20 Albumin 4.4 g/dL (3.5-5.0) 07/04/17 12:20 Globulin 3.7 gm/dL (2.2-3.9) 07/04/17 12:20 Albumin/Globulin Ratio 1.2 (1.0-2.1) 07/04/17 12:20 Venous Blood Potassium 4.1 mmol/L (3.6-5.2) 07/04/17 14:03 - Hospital Course Hospital Course: 36 y/o lady with hx of Migraine, came in bec of 3 days hx of fever and right axillary pain , erythema and tenderness. (1) Cellulitis and Abscess of axillary fold, right Status: Acute erythematous , tender patch on the right axillary area, noted area of fluctuant abscess with punctum draining small amount of purulent material, abscess drained and obtained about 10ml of purulent material - Wound c/s sent received IV Vanco, Clinda, IV Cefepime Blood c/s: negative Surgery consulted US of axilla: no abscess Doppler US of UE Negative for DVT UE Arterial Doppler : good flow leukocytosis 19K on admission , increased due to steroids given in ED Pt is afebrile and clinically better- will d/c pt huber on PO Clindamycin (2) Chest pain , resolved, PE ruled out, likely musculoskeletal pain Status: Acute DDimer elevated CTA of Chest : no PE , no dissection, noted minimal airspace dis (atelectasis vs pneumonitis), pt has no cough,no SOB, saturation 99%on RA Pt on IV Vanco and Cefepime Doppler US of UE and LE : negative Incentive spirometer initially started on Heparin drip - d/c after VTE ruled out DVT proph Lovenox Discharge Exam - Head Exam Head Exam: ATRAUMATIC, NORMAL INSPECTION, NORMOCEPHALIC - Eye Exam Eye Exam: EOMI, Normal appearance, PERRL Pupil Exam: NORMAL ACCOMODATION - ENT Exam ENT Exam: Mucous Membranes Moist, Normal External Ear Exam - Neck Exam Neck exam: Full Rom Additional comments: no nuchal rigidity - Respiratory Exam Respiratory Exam: NORMAL BREATHING PATTERN. absent: Rales, Rhonchi, Respiratory Distress - Cardiovascular Exam Cardiovascular Exam: REGULAR RHYTHM, +S1, +S2 - GI/Abdominal Exam GI & Abdominal Exam: Normal Bowel Sounds, Soft. absent: Tenderness - Extremities Exam Extremities exam: full ROM, normal capillary refill, pedal pulses present Additional comments: right lateral axillary area abscess , purulent material draine d, pain now better erythema around abscess improved - Back Exam Back exam: FULL ROM. absent: CVA tenderness (L), CVA tenderness (R), vertebral tenderness - Neurological Exam Neurological exam: Alert, CN II-XII Intact, Normal Gait, Oriented x3, Reflexes Normal - Psychiatric Exam Psychiatric exam: Normal Affect, Normal Mood - Skin Skin Exam: Dry, Normal Color, Warm Discharge Plan - Discharge Medications Prescriptions: Clindamycin [Cleocin] 300 mg PO Q6 #28 cap Lactobacillus Acidophilus [Bacid Acidophilus] 1 cap PO BID #20 cap Mupirocin 2% Ointment [Bactroban Ointment] 1 applic TOP BID #1 tube - Follow Up Plan Condition: GOOD Disposition: HOME/ ROUTINE Instructions: Clindamycin (By mouth), Mupirocin (On the skin), Probiotic (By mouth), Folliculitis (DC) Additional Instructions: ff up FP clinic in 1 wk Hacer lauren en la clinica dentro de 1 semana Referrals: [facility] [place] [Outside] Jay More MD [Staff Provider] -
[2017-07-06 11:57] LABS: RBC URINE 2 /hpf (0-3); URINE BILIRUBIN NEGATIVE (NEGATIVE); URINE BLOOD NEGATIVE (NEGATIVE); URINE COLOR YELLOW (YELLOW); URINE GLUCOSE (UA) NEG (Normal); URINE KETONE NEGATIVE (NEGATIVE); URINE LEUKOCYTE ESTERASE NEG Leu/uL (Negative); URINE PROTEIN NEGATIVE (NEGATIVE); URINE UROBILINOGEN 0.2-1.0 mg/dL (0.2-1.0); WBC URINE 1 /hpf (0-5)
[2017-07-06] MEDS ORDERED: Naproxen 500 MG TAB PO STA (12:37)
[2017-07-06] MEDS ORDERED: Influenza Vaccine 18yr & older 0.5 ML/45 MCG SYR IM ONE (13:29)
[2017-07-06] MEDS: Influenza Vaccine 18yr & older 0.5 ML/45 MCG SYR IM ONE (13:31)
== END 2017-07-06 16:20 | disposition home or self-care (01) | DRG 278 ==
LOC: H.ER 10:58 → H.ERHOLD 13:50 → OBSVTOIN 13:50 → INTOOBSV 13:50 → H.MEDSURG1 21:12
PROVIDERS: ADMIT Student in an Organized Health Care Education/Training Program; ATTEND Student in an Organized Health Care Education/Training Program
PROC: 3E0234Z Introduction of Serum, Toxoid and Vaccine into Muscle, Percutaneous Approach (ICD-10-PCS; principal; 2017-07-06)
DX: L03.111 Cellulitis of right axilla (principal); B96.89 Other specified bacterial agents as the cause of diseases classified elsewhere; L73.2 Hidradenitis suppurativa; R07.89 Other chest pain; D72.829 Elevated white blood cell count, unspecified; Z23 Encounter for immunization